=== PATIENT | female | born 1965 | race Caucasian/White ===

== ENCOUNTER → 2016-02-11 | Outpatient (CLI) | payer OTHER ==
[~2016-02-11] MED LIST: ALTACE 5MG CAPSU5 MG PO; FLEXERIL10 MG PO; LORTAB 5/500 501 TAB PO; MEDROL 4MG. DOSE4 MG PO; VICODIN 5/500 T1 TAB PO; Zofran4 MG PO
[2016-02-11 08:56] LABS: BUN 15 mg/dL (7-18); GFR (ESTIMATED) 75 ML/MIN (59-)
== END ==
LOC: LAB 07:11
PROVIDERS: Physician Assistant
DX: E03.9 Hypothyroidism, unspecified (principal); E78.5 Hyperlipidemia, unspecified; I10 Essential (primary) hypertension